=== PATIENT | female | born 2000 | race Two or more races ===

== ENCOUNTER 2019-11-18 17:56 | Emergency (ER) | payer BC ==
[~2019-11-18] VITALS: Ht 160 cm; Wt 68.1 kg
[2019-11-18 18:10] VITALS: BP 120/78
--- NOTE | 2019-11-18 18:25 | PHYS DOC ---
Past Medical History Past Medical History: No Pertinent History (HAYES BLANK APRN) Past Surgical History: Tonsillectomy (HAYES BLANK APRN) Smoking Status: Never Smoker Alcohol Use: None (HAYES BLANK APRN) Attending Signature I have participated in the care of this patient and I have reviewed and agree with all pertinent clinical information above including history, exam, and recommendations. (LINO RICHARDSON MD) Adult General Chief Complaint Chief Complaint: ANIMAL BITE HPI HPI Patient is a 18 year old female who presents to the ED today complaining of a dog bite to the right hand. Patient is right-handed, she states her dog got into a fight with another stray dog. She tried to separate them and she believes the stray dog bit her. Patient does not know the vaccine status of the stray dog. (HAYES BLANK APRN) Review of Systems Review of Systems Constitutional: Denies fever or chills [] Musculoskeletal: Reports dog bite to the right hand Integument: Denies rash or skin lesions [] Neurologic: Denies headache, focal weakness or sensory changes [] All other systems were reviewed and found to be within normal limits, except as documented in this note. (HAYES BLANK APRN) Current Medications Current Medications Current Medications Medications (Trade) Dose Ordered Sig/Teofilo Start Time Stop Time Status Last Admin Dose Admin Diphtheria/ Tetanus/Acell Pertussis (Boostrix) 0.5 ml ONCE ONCE 11/18/19 18:30 11/18/19 18:31 DC 11/18/19 18:34 0.5 ML Neomycin/ Polymyxin/ Bacitracin (Triple Antibiotic Ointment) 1 pkt 1X ONCE 11/18/19 18:30 11/18/19 18:31 DC 11/18/19 18:33 1 PKT (LINO RICHARDSON MD) Allergies Allergies Allergies Coded Allergies Type Severity Reaction Last Updated Verified No Known Drug Allergies 11/18/19 No (LINO RICHARDSON MD) Physical Exam Physical Exam Constitutional: Well developed, well nourished, no acute distress, non-toxic appearance. [] Skin: Warm, dry, no erythema, no rash. [] Back: No tenderness, no CVA tenderness. [] Extremities: Right hand with no obvious deformity. Small tiny puncture wounds noted on the right palmar eminence, 2 puncture wounds noted on the right distal middle finger. Bleeding is well controlled. Neurovascular exam is intact to the right hand. +2 right radial pulse. Cap refill less than 2 seconds the right hand. Neurologic: Alert and oriented X 3, normal motor function, normal sensory function, no focal deficits noted. [] Psychologic: Affect normal, judgement normal, mood normal. [] (HAYES BLANK APRN) Current Patient Data Vital Signs Vital Signs Date Time Temp Pulse Resp B/P (MAP) Pulse Ox O2 Delivery O2 Flow Rate FiO2 11/18/19 18:10 98.1 66 18 120/78 (92) 99 Room Air 98.1 (LINO RICHARDSON MD) EKG EKG [] (HAYES BLANK APRN) Radiology/Procedures Radiology/Procedures [] (HAYES BLANK APRN) Course & Med Decision Making Course & Med Decision Making Pertinent Labs and Imaging studies reviewed. (See chart for details) This is a 18-year-old female patient presenting to the ED today with dog bites to the right hand. Tetanus is up-to-dated. Right hand x-rays are negative for any acute findings. Discharged on Augmentin. Wound care instructions and return precautions provided. (HAYES BLANK APRN) Dragon Disclaimer Dragon Disclaimer This electronic medical record was generated, in whole or in part, using a voice recognition dictation system. (HAYES BLANK APRN) Departure Departure Impression: Primary Impression: Dog bite of right hand Disposition: 01 HOME, SELF-CARE Condition: STABLE Referrals: NO PCP (PCP) Follow-up with your own doctor in 1-2 weeks Patient Instructions: Animal Bite, [id number] Additional Instructions: You have dog bites to the right hand, keep the area clean and dry. Take the prescribed antibiotics until completed. Follow-up with your own doctor in 1-2 weeks. Monitor the area for any signs of infection including but not limited to increased redness, warmth, yellow drainage from the areas and return to the ED if they occur. Scripts Amoxicillin/Potassium Clav (AUGMENTIN 875-125 TABLET) 1 Each Tablet 1 TAB PO BID for 10 Days, #20 TAB 0 Refills Prov: HAYES BLANK APRN 11/18/19 Problem Qualifiers Primary Impression: Dog bite of right hand Encounter type: initial encounter Qualified Codes: S61.451A - Open bite of right hand, initial encounter; W54.0XXA - Bitten by dog, initial encounter HAYES BLANK APRN Nov 18, 2019 18:25 LINO RICHARDSON MD Nov 18, 2019 21:53
[2019-11-18] MEDS ORDERED: NEOMY/BACITR/POLYMYXIN OINT PACKET. TP ONE (18:30)
[2019-11-18] MEDS ORDERED: DIPHTH,PERTUSS(ACELL),TET TOX 0.5 ML DISP.SYRIN. VAX IM ONE (18:30)
[2019-11-18] MEDS ORDERED: AMOX1TAB61 PO (18:33)
--- NOTE | 2019-11-18 19:39 | RAD ---
PROCEDURE: HAND RIGHT 3V STUDY DATE: 11/18/2019 CLINICAL INDICATION / HISTORY: Dog bite. TECHNIQUE: PA, lateral and oblique views of the right hand. COMPARISON: None FINDINGS: No fracture or dislocation is identified. The bone density is normal. The joint spaces are maintained, and there are no erosions to suggest an inflammatory arthropathy. The soft tissues are unremarkable. IMPRESSION: No acute osseous abnormality. Electronically signed by: Simone Solitario MD (11/18/2019 7:36 PM) [facility]
== END 2019-11-18 18:54 | disposition home or self-care (01) ==
LOC: ER 17:56
DX: S61.232A Puncture wound without foreign body of right middle finger without damage to nail, initial encounter (principal); Z90.89 Acquired absence of other organs; W54.0XXA Bitten by dog, initial encounter; Y93.89 Activity, other specified; Y92.89 Other specified places as the place of occurrence of the external cause; Y99.8 Other external cause status
CPT/HCPCS: 73130; 90471; 90715; 99284